=== PATIENT | female | born 1940 | race Caucasian/White ===

== ENCOUNTER 2017-10-14 13:53 | Outpatient (CLI) | payer MEDICARE, BC ==
[2017-10-14 13:58] LABS: Anion Gap 16 mmol/L (10-20); BUN (Urea Nitrogen) 28 mg/dL (9.8-20.1); Calc. Creatinine Clearance 0 mL/min (70-130); Calcium 9.3 mg/dL (7.8-10.44); Carbon Dioxide 24 mmol/L (23-31); Chloride 102 mmol/L (98-107); Estimated GFR-MDRD 26; Sodium 139 mmol/L (136-145)
[2017-10-14 13:59] LABS: Glucose 172 mg/dL (83-110); Potassium 2.8 mmol/L (3.5-5.1)
== END 2017-10-14 13:54 | disposition home or self-care (01) ==
LOC: MADLAB 13:53
PROVIDERS: ATTEND Internal Medicine Nephrology
DX: N18.4 Chronic kidney disease, stage 4 (severe) (principal)
CPT/HCPCS: 36415

== ENCOUNTER 2017-12-21 11:32 | Emergency (ER) | payer MEDICARE, BC ==
[2017-12-21 12:25] LABS: #Basophils 0.1 thou/uL (0.0-0.2); #Eosinphils 0.3 thou/uL (0.0-0.7); #Lymphocytes 1.1 thou/uL (1.20-3.40); #Monocytes 0.5 thou/uL (0.11-0.59); #Neutrophils 4.4 thou/uL (1.40-6.50); %Basophils 0.9 % (0.0-1.0); %Eosinophils 4.4 % (0.0-10.0); %Monocytes 8.2 % (0.0-10.0); %Neutrophils 69.5 % (42.0-75.0); Hemoglobin 9.6 g/dL (12.0-16.0); Mean Corpuscular HGB CONC 32.8 g/dL (32.0-36.0); Mean Corpuscular Hemoglobin 28.8 pg (27.0-31.0); Mean Corpuscular Volume 87.8 fl (81.0-99.0); Mean Platelet Volume 7.1 fL (7.4-10.4); Platelet Count 178 thou/uL (130-400); RBC Distribution Width 14.3 % (11.5-14.5); Red Blood Cell (RBC) Count 3.34 mill/uL (4.20-5.40); White Blood Cell (WBC) Count 6.3 thou/uL (4.8-10.8)
[2017-12-21 12:32] LABS: INR-International Normal Ratio 1.1; PTT 32.5 SEC (22.9-36.1); Prothrombin Time 13.8 SEC (12.0-14.7)
[2017-12-21 12:45] LABS: ALT (SGPT) 16 U/L (8-55); AST (SGOT) 22 U/L (5-34); Albumin 3.4 g/dL (3.4-4.8); Alkaline Phosphatase 88 U/L (40-150); Anion Gap 17 mmol/L (10-20); BUN (Urea Nitrogen) 34 mg/dL (9.8-20.1); Bilirubin, Total 0.5 mg/dL (0.2-1.2); Calc. Creatinine Clearance 0 mL/min (70-130); Calcium 8.8 mg/dL (7.8-10.44); Carbon Dioxide 21 mmol/L (23-31); Chloride 103 mmol/L (98-107); Estimated GFR-MDRD 26; Globulin 2.8 g/dL (2.4-3.5); Glucose 117 mg/dL (83-110); Potassium 3.5 mmol/L (3.5-5.1); Protein, Total 6.2 g/dL (6.0-8.3); Sodium 137 mmol/L (136-145)
[2017-12-21] MEDS ORDERED: cloNIDine 0.1 MG TAB ONE (12:47)
[2017-12-21] MEDS ORDERED: Hydrochlorothiazide 25 MG TAB ONE ×2 (12:48)
[2017-12-21] MEDS ORDERED: hydrALAZINE 10 MG TAB ONE (12:56)
== END 2017-12-21 13:04 | disposition short-term general hospital (02) ==
LOC: MADERS 11:32
DX: R04.0 Epistaxis (principal); I25.2 Old myocardial infarction; E11.9 Type 2 diabetes mellitus without complications; E78.5 Hyperlipidemia, unspecified; I10 Essential (primary) hypertension; F32.9 Major depressive disorder, single episode, unspecified; Z79.82 Long term (current) use of aspirin; Z79.899 Other long term (current) drug therapy
CPT/HCPCS: 80053; 82553; 84484; 85025; 85610; 85730; 86850; 86900; 86901

== ENCOUNTER 2018-01-06 13:00 | Emergency (ER) | payer MEDICARE, BC ==
[~2018-01-06 13:00] MED LIST: Sodium Chloride 0.9% 1,000 ML BAG ONE
[2018-01-06] MEDS ORDERED: Aspirin 325 MG TAB ONE (14:03)
[2018-01-06] MEDS ORDERED: Metoclopramide HCl 10 MG/2 ML VIAL ONE (14:23)
[2018-01-06] MEDS ORDERED: Promethazine HCl 25 MG/ML VIAL ONE (14:23)
[2018-01-06] MEDS ORDERED: Ketorolac Tromethamine 30 MG/ML VIAL ONE (14:23)
[2018-01-06 14:37] LABS: Bilirubin Small (Negative); Blood, Urine Negative (Negative); Clarity Clear (Clear); Glucose, Urine (Dipstick) Negative (Negative); Leukocyte Negative (Negative); Nitrite Negative (Negative); Protein, Urine (Dipstick) 30 mg/dL (Neg-Trace); Urobilinogen 0.2 mg/dL (0.2-1.0); pH, Urine 5.5 (5.0-9.0)
[2018-01-06 14:51] LABS: ALT (SGPT) 28 U/L (8-55); AST (SGOT) 44 U/L (5-34); Albumin 3.2 g/dL (3.4-4.8); Alkaline Phosphatase 97 U/L (40-150); Anion Gap 12 mmol/L (10-20); BUN (Urea Nitrogen) 58 mg/dL (9.8-20.1); Bilirubin, Total 0.6 mg/dL (0.2-1.2); Calc. Creatinine Clearance 0 mL/min (70-130); Calcium 8.7 mg/dL (7.8-10.44); Carbon Dioxide 23 mmol/L (23-31); Chloride 104 mmol/L (98-107); Estimated GFR-MDRD 13; Globulin 2.6 g/dL (2.4-3.5); Glucose 113 mg/dL (83-110); Potassium 4.3 mmol/L (3.5-5.1); Protein, Total 5.8 g/dL (6.0-8.3); Sodium 135 mmol/L (136-145)
[2018-01-06 14:54] LABS: Bacteria/HPF None Seen HPF (None Seen); RBC/HPF 0-3 HPF (0-3); Squamous Epithelial 0-3 HPF (0-3); WBC/HPF 0-3 HPF (0-3)
[2018-01-06 14:56] LABS: CKMB 2.4 ng/mL (0-6.6)
[2018-01-06 15:04] LABS: Band 1 % (5-11); Hemoglobin 7.8 g/dL (12.0-16.0); Lymphocytes 6 % (21-51); MDiff Complete? YES; Mean Corpuscular HGB CONC 31.3 g/dL (32.0-36.0); Mean Corpuscular Hemoglobin 26.9 pg (27.0-31.0); Mean Corpuscular Volume 85.9 fl (81.0-99.0); Monocytes 1 % (0-10); Neutrophil 92 % (42-75); Platelet Count 196 thou/uL (130-400); RBC Distribution Width 14.4 % (11.5-14.5); Red Blood Cell (RBC) Count 2.91 mill/uL (4.20-5.40); White Blood Cell (WBC) Count 4.7 thou/uL (4.8-10.8)
[2018-01-06 16:04] LABS: INR-International Normal Ratio 1.1; Prothrombin Time 14.7 SEC (12.0-14.7)
[2018-01-06 16:05] LABS: PTT 36.2 SEC (22.9-36.1)
== END 2018-01-06 16:25 | disposition short-term general hospital (02) ==
LOC: MADERS 13:00
DX: D50.0 Iron deficiency anemia secondary to blood loss (chronic) (principal); I13.0 Hypertensive heart and chronic kidney disease with heart failure and stage 1 through stage 4 chronic kidney disease, or unspecified chronic kidney disease; I50.9 Heart failure, unspecified; N18.2 Chronic kidney disease, stage 2 (mild); I25.2 Old myocardial infarction; E11.9 Type 2 diabetes mellitus without complications; E78.5 Hyperlipidemia, unspecified; F32.9 Major depressive disorder, single episode, unspecified; Z79.82 Long term (current) use of aspirin; Z79.899 Other long term (current) drug therapy
CPT/HCPCS: 36415; 80053; 81001; 82553; 83605; 83880; 84484; 85025; 85610; 85652; 85730; 87081; 87086; 87430; 87804; 93005; 94760; 96361; 96374; 96375; A4353; J1885; J2550; J2765

== ENCOUNTER 2018-01-28 13:10 | Outpatient (CLI) | payer MEDICARE, BC ==
[2018-01-28 13:35] LABS: Anion Gap 15 mmol/L (10-20); BUN (Urea Nitrogen) 62 mg/dL (9.8-20.1); Calc. Creatinine Clearance 0 mL/min (70-130); Calcium 9.4 mg/dL (7.8-10.44); Carbon Dioxide 27 mmol/L (23-31); Chloride 100 mmol/L (98-107); Estimated GFR-MDRD 24; Glucose 117 mg/dL (83-110); Sodium 138 mmol/L (136-145)
== END 2018-01-28 13:11 | disposition home or self-care (01) ==
LOC: MADLAB 13:10
PROVIDERS: ATTEND Internal Medicine Nephrology
DX: D64.9 Anemia, unspecified (principal)
CPT/HCPCS: 80048